=== PATIENT | male | born 1990 | race Caucasian/White ===

== ENCOUNTER → 2020-07-07 15:11 | Outpatient (BNVA) | payer OTHER, SELFPAY | PROVIDERS: Visit Provider Urology | DX: Z13.89 Encounter for screening for other disorder (principal) | CPT/HCPCS: 99202 ==

== ENCOUNTER 2021-01-31 09:36 | Outpatient (REF) | payer OTHER, SELFPAY ==
[2021-01-31 12:08] LABS: HIV AB/AG Nonreactive (Nonreactive); HIV Num 1 0.07 S/CO (0.00-0.99)
== END 2021-01-31 09:37 | disposition home or self-care (01) ==
LOC: HO.HMGCLDS 09:36
PROVIDERS: PCP Physician Assistant; Visit Provider Physician Assistant
DX: Z11.3 Encounter for screening for infections with a predominantly sexual mode of transmission (principal)
CPT/HCPCS: 36415; 87389

== ENCOUNTER → 2021-02-02 11:24 | Outpatient (BNVA) | payer OTHER, SELFPAY | PROVIDERS: Visit Provider Urology | DX: F41.8 Other specified anxiety disorders (principal) | CPT/HCPCS: 55250 ==

== ENCOUNTER → 2021-06-15 08:54 | Outpatient (BNVA) | payer OTHER, SELFPAY | PROVIDERS: Visit Provider Urology | DX: Z30.8 Encounter for other contraceptive management (principal); F41.8 Other specified anxiety disorders; Z98.52 Vasectomy status | CPT/HCPCS: 99212 ==

== ENCOUNTER 2022-10-04 06:51 | Outpatient (REF) | payer OTHER, SELFPAY ==
--- NOTE | ~2022-10-04 | XR_ITS ---
EXAMINATION: XR SHOULDER, RIGHT CLINICAL INFORMATION: Right shoulder pain COMPARISON: None available. TECHNIQUE: AP external rotation, Grashey, scapular Y, and axillary views of the right shoulder. FINDINGS: There is no evidence of acute fracture or dislocation of the right shoulder. No calcific tendinitis. Minor sclerosis and spur about the inferior glenoid which may be related to previous trauma. No joint space narrowing is appreciated. No widening of the coracoclavicular space is seen. The acromioclavicular joint appears unremarkable. Old healed mid right clavicle fracture seen. XR/XR shoulder RT min 2V IMPRESSION: Minimal glenohumeral joint degenerative change. No evidence of acute fracture, dislocation, or calcific tendinitis.
[2022-10-04 07:21] LABS: Hematocrit 46.7 % (42.0-52.0); Mean Corpuscular HGB Conc 34.3 g/dl (31.0-36.0); Mean Corpuscular Hemoglobin 28.8 pg (27.0-33.0); Mean Platelet Volume 10.2 fL (9.4-12.4); Platelet Count 252 X10*3/uL (160-400); Red Blood Count 5.56 X10*6/uL (4.60-5.80); Red Cell Distribution Width 12.2 % (11.0-16.0); White Blood Count 7.5 X10*3/uL (4.8-10.8)
[2022-10-04 07:55] LABS: Alanine Aminotransferase 79 U/L (0-40); Albumin Level 4.6 g/dL (3.5-5.0); Alkaline Phosphatase 49 U/L (39-117); Anion Gap 10 (12-20); Aspartate Amino Transferase 34 U/L (5-37); Bilirubin Total 1.1 mg/dL (0.0-1.0); Blood Urea Nitrogen 18 mg/dL (9-16); Carbon Dioxide 30 mmol/L (22-29); Chloride 105 mmol/L (96-108); Estimated Glomerular Filt Rate > 60; Glucose Fasting 96 mg/dL (60-99); Potassium 4.9 mmol/L (3.3-5.1); Sodium 140 mmol/L (135-145); Total Protein 7.1 g/dL (6.5-8.0)
== END 2022-10-04 06:52 | disposition home or self-care (01) ==
LOC: HO.XRAY 06:51
PROVIDERS: PCP Physician Assistant; Visit Provider Physician Assistant
DX: Z13.1 Encounter for screening for diabetes mellitus (principal); M25.511 Pain in right shoulder
CPT/HCPCS: 36415; 73030; 80053; 85027

== ENCOUNTER 2022-11-23 08:00 | Outpatient (RCR) | payer OTHER, SELFPAY ==
--- NOTE | 2022-10-27 14:17 | MHC.PT.EP ---
[facility] [place] Office [place] Office [place] Office [address] Lorri Borjas [address] [phone] F: [phone] F: [phone] F: [phone] F: [phone] Physical Therapy Plan of Care Date of Evaluation: Date of Surgery: Diagnosis: ARTHRALGIA RT SHOULDER AC Jt Assessment: 32 YO MALE REF TO PT W DX ARTHRALGIA Rt AC JOINT SINCE EARLY SEPTEMBER 2022. 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 HE HAS A H/O Rt CLAVICULAR FX YRS AGO. THE Pt IS AN ACTIVE [employer] - HE IS DUE FOR HIS PHYSICAL FITNESS TEST IN OCTOBER. THE Pt HAS DECR AROM Rt SH (ESPEC HORIZ ADD, IR POST,ER, ABD), DECR SCAP/ POST RC STRENGTH, TIGHT PECT, (+) UT COMP, TIGHT LATS AND LUMB PS MM, (+) MILD BEAR HUG AND SPEED'S TEST Rt, AND PAIN IN Rt SUBACROMIAL/ POST Rt SH. 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 Frequency and Duration: The patient will be seen 2 x WK x 8 WKS Short Term Goals: *DECREASE Rt SH PAIN TO A 2-3/10 *IMPROVE END ROM, RIGHT SH-> IMPROVE PECT / UT -LAT-LB FLEXIB *Pt DEMON EFFICIENT ACTIV OF SCAP RETRACTORS W/O UT COMPEN-> CLOSED CHAIN STAB Senior Living Goals: *Pt INDEP W HEP/ DEMON APPROP FORM W [employer] EXER *(-) BEAR HUG AND SUPRASPINATUS SIGNS Rt SH * Pt RETURN TO REG ADLs AND FITNESS TEST (67 PUSH-UPS AND SIT UPS W UEs CROSSED) EVIDENT W IMPROVED SPADI (AT EVAL 39/130) *Rt POST RC/ SCAP MM STRENGTH IMPROVED BY 1 GRADE Treatment Plan: Modalities to reduce pain, spasms and effusion. Manual therapy to restore motion and function. Therapeutic exercise to improve strength and flexibility. Neuromuscular re-education for posture and balance. Therapeutic activities to return to functional activities of daily living. Electronically signed by: SIMIN VEGA.PT Please sign and return to therapist. Thank you for your referral.
--- NOTE | 2022-11-23 09:12 | MHC.PT.DC ---
[facility] [place] Office [place] Office [place] Office [address] Lorri Borjas [address] [phone] F: [phone] F: [phone] F: [phone] F: [phone] Physical Therapy Discharge Report Diagnosis: ARTHRALGIA RT SHOULDER AC Jt Date of Surgery: Date of Evaluation: 10/27/22 Date of Discharge: 11/23/22 Treatments to Date: 8 Cancellations to Date: 1 No Shows to Date: 0 Discharge Status: Achieved Goals Improved Function Independent with HEP Discharge Summary: THE Pt HAS PROGRESSED NICELY IN PT- HE HAS MET HIS GOALS, ULTIMATELY OF PASSING HIS PHYSICAL FITNESS TEST, PERF THE REQ PUSH-UPS AND SIT-UPS W/O EXACERBATING HIS SHOULDER. HE HAS SOME SCAP WINGING-> WE DISCUSSED EXERCISES TO CONT TO ENHANCE STABILIZATION. HE DEMON NORMAL AROM AND STRENGTH IN HIS Rt SH AND IMPROVED ACTIV OF HIS SCAP/ POST RC MM. HIS SPADI SCORE IMPROVED FROM 39/130 AT EVAL, TO 7/130 AT DISCHARGE TODAY. HE IS MOTIVATED AND COMPLIANT W HIS HEP AND IS D/C'D THIS DATE W PROGRESSIONS. Electronically signed by: SIMIN VEGA,PT Please sign and return to therapist. Thank you for your referral.
== END 2022-11-23 09:12 | disposition home or self-care (01) ==
LOC: HO.PT 08:00
PROVIDERS: PCP Physician Assistant; Visit Provider Physician Assistant
DX: M25.511 Pain in right shoulder (principal)
CPT/HCPCS: 97110; 97140; 97162

== ENCOUNTER 2023-05-30 10:16 | Outpatient (REF) | payer OTHER, SELFPAY ==
[2023-05-30 11:39] LABS: HIV AB/AG Nonreactive (Nonreactive); HIV Num 1 0.08 S/CO (0.00-0.99)
== END 2023-05-30 10:17 | disposition home or self-care (01) ==
LOC: HO.LAB 10:16
PROVIDERS: Visit Provider Physician Assistant
DX: Z11.4 Encounter for screening for human immunodeficiency virus [HIV] (principal)
CPT/HCPCS: 36415; 87389

== ENCOUNTER 2023-11-21 11:16 | Outpatient (AMB) | payer OTHER, SELFPAY ==
[2023-11-21 11:39] VITALS: BP 118/72; PULSE 66; O2SAT 98; BMI 31.2
--- NOTE | 2023-11-21 11:39 | MHC.PC.OV ---
Vital Signs 11/21/23 11:39 Height 5 ft 9 in Weight 211 lb 2 oz BMI 31.2 BP 118/72 Blood Pressure Location Lt brachial Position Sitting Pulse 66 Pulse Source Pulse Oximeter Pulse Oximetry (%) 98 Oxygen Delivery Method Room Air Intake Visit Reasons: annual exam Intake Note: Patient is here today for a physical. Sizing Sprayer Required: No Accompanied by: Self / Same As Patient Allergies No Known Allergies Allergy (Verified 11/21/23 11:44) Medication List - Last Reconciled 11/21/23 by Jed Gloria PA-C No Known Home Meds Tobacco use date assessed: 11/21/23 Dental Screening Dental Screen Date: 11/21/23 Did you have a dental visit in the last 12 months?: Yes Did you have a dental problem in the last 6 months where you did not have access to dental care?: No Was dental information given to patient?: Patient has dentist HPI annual exam HPI Details Patient is a 33-year-old male here today as a new patient annual physical. No Pmhx? 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 Likely has lateral epicondylitis and will try conservative management for this.. no other concerns today . Obesity: Noted weight loss since last office visit .. VAccine: UTD with all vaccine Labs- negative for HIV [facility] Surgical History H/O vasectomy Family History Father Prostate cancer Mother No problems noted. 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 1. Little interest or pleasure in doing things: not at all 2. Feeling down, depressed, or hopeless: not at all 3. Trouble falling or staying asleep, or sleeping too much: not at all 4. Feeling tired or having little energy: not at all 5. Poor appetite or overeating: not at all 6. Feeling bad about yourself - or that you are a failure or have let yourself or your family down: not at all 7. Trouble concentrating on things, such as reading the newspaper or watching television: not at all 8. Moving or speaking so slowly that other people could have noticed. Or the opposite - being so fidgety or restless that you have been moving around a lot more than usual: not at all 9. Thoughts that you would be better off or of hurting yourself in some way: not at all Total score: 0 Depression Screening Interpretation: Negative Depression Screening Done: Yes 25237 - PHQ-9 Billing: Yes Source: Developed by Drs. Chan Garcia, Jacquelin Arora, Paulo Kasper and colleagues, with an educational amber from [employer] Thrive Questionnaire Date Thrive assessed: 11/21/23 I am a: Patient What is your living situation today?: I have a steady place to live Within the past 12 months, did the food you bought not last and you didn't have the money to get more?: Never true Within the past 12 months, did you worry whether your food would run out before you got money to buy more?: Never true Do you have trouble paying for medicines?: No Do you have trouble getting transportation to medical appointments?: No Do you have trouble paying your heating and electricity bill?: No Do you have trouble taking care of your child, family member or friend?: No Do you have trouble with day-to-day activities such as bathing, preparing meals, shopping, managing finances, etc.?: No Are you currently unemployed and looking for a job?: No Are you interested in more education?: No Please select the resources that you would like help with: None Currently or been in a relationship where the following occur: No concerns reported THRIVE Score: 0 AUDIT C Alcohol Use Questionnaire (AUDIT-C) 1. How often do you have a drink containing alcohol?: 2-4 times a month 2. How many drinks containing alcohol do you have on a typical day when you are drinking?: 1 or 2 3. How often do you have six or more drinks on one occasion?: Never Total Score: 2 MARY-7 AMB Questionnaire MARY-7 Date MARY - 7 assessed: 11/21/23 Feeling nervous, anxious, or on edge: 0 = Not at all Not being able to stop or control worryin = Not at all Worrying too much about different things: 0 = Not at all Trouble relaxin = Not at all Being so restless that it is hard to sit still: 0 = Not at all Becoming easily annoyed or irritable: 0 = Not at all Feeling afraid as if something awful might happen: 0 = Not at all Total MARY-7 score (0-4 normal; 5-9 mild; 10-14 moderate; 15-21 severe): 0 Source: Developed by Drs. Chan Garcia, Jacquelin Arora, Paulo Kasper and colleagues, with an educational amber from [employer]. MARY-7 Assessment Billing MARY-7 Assessment Tool: MARY-7 Assessment 60706 Review of Systems Const Denies body aches, Denies chills, Denies excessive sweating, Denies fatigue, Denies fever(s) and Denies headache(s) Eyes Denies blurry vision ENT Denies dysphagia, Denies vertigo, Denies dizziness, Denies headache(s), Denies hearing loss and Denies tinnitus Card Denies chest pain, Denies chest pain with activity, Denies syncope, Denies irregular heart rhythm and Denies dyspnea Resp Denies chest congestion, Denies cough, Denies hemoptysis, Denies dyspnea and Denies wheezing GI Denies abdominal pain, Denies melena, Denies hematochezia, Denies coffee ground emesis, Denies dysphagia, Denies diarrhea, Denies nausea and Denies vomiting Denies difficulty urinating, Denies dysuria, Denies urinary frequency, Denies urinary hesitancy and Denies urinary urgency Musc Denies arthralgias, Denies limited range of motion, Denies muscle cramps and Denies muscle weakness Skin/Breast Denies rash and Denies skin ulcer Neuro Denies Abnormal speech present, Denies confusion, Denies vertigo, Denies dizziness, Denies syncope, Denies headache(s), Denies memory loss and Denies seizure-like activity Psych Denies anxiety, Denies confusion, Denies depression, Denies memory loss, Denies panic attacks and Denies paranoia Endo Denies excessive sweating, Denies fatigue, Denies flushing, Denies polydipsia and Denies polyuria Aller/Immun Denies wheezing Physical exam (Primary Care) Vital Signs: Last Vital Signs Pulse 66 11/21/23 11:39 BP 118/72 11/21/23 11:39 Pulse Ox 98 11/21/23 11:39 Oxygen Delivery Method Room Air 11/21/23 11:39 BMI result Body Mass Index 31.2 Tobacco/Smoking Status: Tobacco use Status Tobacco use date assessed 09/22/21 10/02/22 08:08 Patient Tobacco Use Status Never used Tobacco 10/02/22 08:08 e-Cigarette/Vaping Use Never Used 10/02/22 08:08 Depression Screening Interpretation: Negative Thrive Assessment: Date of Thrive Assessment Date Thrive assessed 10/02/22 10/02/22 08:08 Currently or been in a relationship where the following occur: No concerns reported Const General: cooperative, comfortable, no acute distress, alert and awake; No confusion Orientation/consciousness: oriented to person, oriented to place, patient oriented x3 and No confusion HENMT Head: Yes normocephalic Ears: external ears normal and TM's normal bilaterally Face and sinus: No sinus tenderness Mouth: Normal oral and palatal mucosa present and tongue normal Teeth and gingiva: dentition normal and gingiva normal Throat: Yes posterior oropharynx normal, Yes tonsils normal and Yes uvula midline Eyes Conjunctivae: conjunctivae normal Sclerae: sclerae normal Pupils: Equal, round and reactive pupils present EOM: EOMs intact bilaterally Direct Ophthalmoscopy: No no photophobia Neck Neck: Yes no lymphadenopathy, No tender and Yes no JVD Thyroid: Thyroid normal Carotids: no bruits Chest Chest palpation & inspection: no tenderness Resp Effort & Inspection: normal respiratory effort, no audible wheezes, not labored and no stridor Auscultation: no crackles, no rales, no rhonchi and no wheezes Cardio Jugular venous distension: no JVD Rate: regular rate, not bradycardic and not tachycardic Rhythm: regular rhythm Bruits: no carotid bruits Peripheral pulses: Peripheral pulses 2+ throughout GI Inspection: Yes normal to inspection, No abdominal wall ecchymosis and No visible herniation Palpation (GI): Soft to palpation, nontender, no guarding, not rigid and No hepatosplenomegaly present Auscultation: normoactive bowel sounds General: Yes no CVA tenderness Back/Spine/Pelvis Back: no CVA tenderness and No back tenderness Cervical Spine: cervical ROM normal Thoracic/Lumbar Spine: thoracic and lumbar spine normal to inspection, straight leg raise negative bilaterally, No thoraco-lumbar ROM limited and No lumbar spinal tenderness Skin Lesions: no lesions Rashes: no rashes Wounds: no wounds Neuro General: oriented to person, oriented to place, patient oriented x3, CN's II-XI intact bilaterally and No confusion Cranial nerves: Yes Equal, round and reactive pupils present and Yes Normal accommodation reflex present Cognition (Neuro): normal cognition Speech: No Abnormal speech present Gait exam (Neuro): Normal gait present Motor exam (neuro): 5/5 motor strength present throughout Extrem Right upper extremity: full ROM; no cyanosis Left upper extremity: full ROM; no cyanosis Right lower extremity: no edema Left lower extremity: no edema Psych Appearance: grossly normal Mental Status: mental status grossly normal Affect: normal affect Attitude: cooperative Thought process: Normal thought process present Assessment and Plan Assessment & Plan (1) Annual physical exam: Code(s): Z00.00 - Encounter for general adult medical examination without abnormal findings (2) Obese: Code(s): E66.9 - Obesity, unspecified Qualifiers: Obesity type: due to excess calories Obesity classification: adult class 1 (BMI 30 - 34.9) Serious obesity comorbidity presence: without serious comorbidity Body mass index: BMI 31.0-31.9 Qualified Code(s): E66.09 - Other obesity due to excess calories; Z68.31 - Body mass index [BMI] 31.0-31.9, adult Plan: Has lost weight since last office visit.. Patient does understand his BMI is over 30 will work on being more physically active and adapting to better eating habits to reduce his weight Coding Level of Care Code Est Pt Prev Care 18-39y(64303) Diagnoses Annual physical exam Z00.00 Class 1 obesity due to excess calories without serious comorbidity with body mass index (BMI) of 31.0 to 31.9 in adult E66.09; Z68.31 Obesity type: due to excess calories Obesity classification: adult class 1 (BMI 30 - 34.9) Serious obesity comorbidity presence: without serious comorbidity Body mass index: BMI 31.0-31.9 Additional Codes MARY-7 Assessment Billing - MARY-7 Assessment Tool: MARY-7 Assessment [id number] ([id number])
== END 2023-11-21 11:59 | disposition home or self-care (01) ==
PROVIDERS: PCP Physician Assistant; Visit Provider Physician Assistant
DX: Z00.00 Encounter for general adult medical examination without abnormal findings (principal); E66.09 Other obesity due to excess calories; Z68.31 Body mass index [BMI] 31.0-31.9, adult
CPT/HCPCS: 99395